=== PATIENT | female | born 1985 | race Caucasian/White ===

== ENCOUNTER 2019-08-16 21:14 | Emergency (ER) | payer BC, OTHER ==
[~2019-08-16] VITALS: Ht 162.6 cm; Wt 65.8 kg
[~2019-08-16 21:14] MED LIST: DERMOPLAST SPRA56 ML; IBUPROFEN 400400 M1 PO; LANOLIN56 GM; PRENATAL PO; SENNA PO; TUCKS MEDICATE1 EAC1
[2019-08-16] MEDS ORDERED: PROZAC20 MG PO (21:26)
[2019-08-16] MEDS ORDERED: NORCO 5-325 TA1 EAC1 PO (23:31)
[2019-08-16 23:56] VITALS: BP 128/76
== END 2019-08-16 23:52 | disposition home or self-care (01) ==
LOC: ER 21:14
DX: S82.65XA Nondisplaced fracture of lateral malleolus of left fibula, initial encounter for closed fracture (principal); J45.909 Unspecified asthma, uncomplicated; Z79.899 Other long term (current) drug therapy; X50.1XXA Overexertion from prolonged static or awkward postures, initial encounter; Y93.67 Activity, basketball; Y92.89 Other specified places as the place of occurrence of the external cause; Y99.9 Unspecified external cause status